=== PATIENT | male | born 1990 | race Hispanic/Latino ===

== ENCOUNTER 2020-01-15 09:41 | Emergency (ER) | payer BC, OTHER ==
[2020-01-16 15:58] LABS: SARS-CoV-2 MS2 Positive; SARS-CoV-2 N Gene Positive; SARS-CoV-2 S Gene Positive; SARS-CoV-2 by NAA DETECTED (NotDetected); SARS-CoV-2 orf1ab Positive
== END 2020-01-15 10:16 | disposition home or self-care (01) ==
LOC: NAV ERS 09:41
DX: U07.1 COVID-19 (principal); Z87.891 Personal history of nicotine dependence
CPT/HCPCS: 87635; 99284; U0003

== ENCOUNTER 2020-08-26 11:08 | Emergency (ER) | payer OTHER, SELFPAY ==
[2020-08-27 01:56] LABS: SARS-CoV-2 PCR by NAA Not Detected (NotDetected)
== END 2020-08-26 12:50 | disposition home or self-care (01) ==
LOC: NAV ERS 11:08
DX: J20.9 Acute bronchitis, unspecified (principal); Z20.822 Contact with and (suspected) exposure to COVID-19; Z87.891 Personal history of nicotine dependence
CPT/HCPCS: 71046; 87635; U0003; U0005